=== PATIENT | male | born 1995 | race Caucasian/White ===

== ENCOUNTER 2019-08-03 22:35 | Emergency (ER) | payer OTHER ==
[~2019-08-03] VITALS: Ht 170.2 cm; Wt 72.6 kg
[2019-08-03 22:42] VITALS: BP 133/66
--- NOTE | 2019-08-04 00:35 | NUR ---
PATIENT LEFT WITHOUT BEING SEEN BY DR. BRUNSON. NO FURTHER CARE PROVIDED FOR PATIENT.
== END 2019-08-04 00:35 | disposition left against medical advice (07) ==
LOC: MED 22:35
DX: T14.8XXA Other injury of unspecified body region, initial encounter (principal); Z53.21 Procedure and treatment not carried out due to patient leaving prior to being seen by health care provider; X58.XXXA Exposure to other specified factors, initial encounter; Y93.89 Activity, other specified; Y92.89 Other specified places as the place of occurrence of the external cause; Y99.8 Other external cause status